=== PATIENT | male | born 2000 | race Hispanic/Latino ===

== ENCOUNTER 2022-05-29 17:23 | Emergency (ER) | payer OTHER, SELFPAY ==
--- OUTSIDE RECORDS SUMMARY | 2022-05-29 17:26 | XMS REPORT | Continuity of Care Document ---
:2000 Author Organization [facility] t Address [address] [place] [address] [address] [place] [address] Care Team Providers Name Role Phone Andre Espinoza Attending Clinician Unavailable Tenzin Jhaveri Attending Clinician Unavailable Problems Condition Condition Condition Status Onset Resolution Last Treating Co mments Source Name Details Category Date Date Treatment Clinician Date Tobacco Tobacco Problem Active Common use use Spirit disorder disorder - [facility] Allergies, Adverse Reactions, Alerts This patient has no known allergies or adverse reactions. Medications Ordered Filled Start Stop Current Ordering Indication Dosage Frequency Signature Comments Components Source Medication Medication Date Date Medication? Clinician (SIG) Name Name Doxycycline Doxycycline 2019- No [facility] 1 capsule Common Hyclate Hyclate 4-10 01-01 Espinoza Spirit 00:00: 00:00 - [facility] 00 :00 [facility] Procedures This patient has no known procedures. Encounters Start End Encounter Admission Attending Care Care Encounter Source Date/Time Date/Time Type Type Clinicians Facility Department ID 2022-03-14 Outpatient [facility] [id number] [place] 08:51:[id number] [facility] 2021-10-12 Outpatient THUY Espinoza NATHALIA [id number] Common 11:17:21 [facility] [id number] [facility] 2021-01-10 2021-01-10 Outpatient JAYA Sanchez STLSSAVANAH [id number] [facility] [address] 04:56:00 04:56:00 Tenzin [id number] Ashish maritnez 2019-04-18 2019-04-18 Outpatient Donna Granado [id number] Common 12:04:00 12:04:[address] Family [facility] 2019-04-14 2019-04-14 [facility] [id number] Common 11:00:00 11:00:00 [facility] [address] [facility] 2018-12-30 2018-12-30 Outpatient Donna Granado [id number] Common 08:36:00 08:36:[address] [facility] 2018-12-25 2018-12-25 Outpatient Donna Granado [id number] Common 11:00:00 11:00:[address] [facility] Results This patient has no known results.
[2022-05-29] MEDS ORDERED: NA CHLORIDE 0.9% 1,000 ML ONE (18:13)
[2022-05-29 18:18] LABS: Absolute Lymphocytes (CBC) 1.1 K/uL (0.7-4.9); Hematocrit 44.6 % (39.6-49.0); Lymphocytes % 15.8 % (15.3-44.8); MCV 89.3 fL (80-100); MPV 8.5 fL (7.6-11.3)
[2022-05-29 18:22] LABS: Protime INR 0.96
--- NOTE | 2022-05-29 18:24 | ER ---
Nurse's Notes [facility] Name: Leo Alanis Age: 22 yrs Sex: Male : 2000 Arrival Date: 05/29/2022 Time: 17:42 Bed 20 Private MD: Diagnosis: Major depressive disorder, single episode, mild;Other psychoactive substance abuse;Other psychoactive substance abuse with intoxication delirium;Suicidal ideations Presentation: 05/29 17:53 Chief complaint: EMS states: patient got into an argument with his girlfriend, told her mb8 he was going to take a bunch of pills. PD was called and called EMS to transport patient. Patient denies wanting to hurt himself or other right now. Coronavirus screen: Vaccine status: Patient reports being unvaccinated. Ebola Screen: No symptoms or risks identified at this time. Initial Sepsis Screen: Does the patient meet any 2 criteria? No. Patient's initial sepsis screen is negative. Does the patient have a suspected source of infection? No. Patient's initial sepsis screen is negative. Risk Assessment: Do you want to hurt yourself or someone else? Patient reports desire/thoughts of hurting themselves or someone else. Provider notified. Other: told girlfriend he want to take pills to kill himself. Onset of symptoms is unknown. 17:53 Method Of Arrival: EMS [facility] 17:53 Acuity: QIAN 2 mb8 18:20 Care prior to arrival: None. mb8 Triage Assessment: 17:56 General: Appears in no apparent distress. Behavior is quiet. Pain: Denies pain. mb8 18:08 General:. mb8 Historical: - Allergies: 17:55 No Known Allergies; mb8 - Social history:: Smoking status: Patient reports the use of cigarette tobacco products, denies chronic smoking, but will smoke occasionally. Screenin:57 Abuse screen: Denies threats or abuse. Denies injuries from another. Nutritional mb8 screening: No deficits noted. Tuberculosis screening: No symptoms or risk factors identified. Fall Risk None identified. Assessment: 17:56 Pain: Denies pain. Neuro: No deficits noted. Cardiovascular: No deficits noted. mb8 Respiratory: No deficits noted. GI: No deficits noted. : No deficits noted. Psych: 18:21 [place] Suicide Severity Screening: In the past month, have you wished you were mb8 or wished you could go to sleep and not wake up? Patient responds "No." "In the past month, have you actually had any thoughts of killing yourself?" Patient responds "no." "In your lifetime, have you ever done anything, started to do anything, or prepared to do anything to end your life?" Patient responds "no." Patient told girlfriend he wants to take a bunch of pills to kill himself, denies wanting to follow through at this time. Subjective: Patient's mood is sad, Delusions are denied, Hallucinations are denied Having thoughts of suicide. Plan for suicide is Patient told girlfriend he wants to take a bunch of pills to kill himself, denies wanting to follow through at this time. Objective: Patient is cooperative, guarded, using poor eye contact, Speech is soft, Affect is appropriate. Interventions: Removed personal items and placed in bag. Patient placed in hospital gown. Searched person for dangerous items. Safety Checks: Personal items have been removed. Door is open. Vital Signs: 17:46 BP 108 / 77; Pulse 63; Resp 16; Temp 98.4; Pulse Ox 100% on R/A; Weight 78.47 kg (R); mb7 Height 5 ft. 11 in. (180.34 cm) (R); 21:38 BP 127 / 76; Pulse 57; Resp 16; Pulse Ox 100% on R/A; ll3 17:46 Body Mass Index 24.13 (78.47 kg, 180.34 cm) mb7 ED Course: 17:42 Patient arrived in ED. mb8 17:46 Jasson Carlson MD is Attending Physician. [facility] 17:47 Patient has correct armband on for positive identification. mb7 17:53 Mandeep Friedman, NUNU is Primary Nurse. mb8 17:55 Triage completed. mb8 17:56 Arm band placed on. mb8 17:57 Allergy band placed. Bed in low position. Patient is placed in psych hold. mb8 17:57 No provider procedures requiring assistance completed. mb8 17:58 Safety Checks: Personal items have been removed. The door is open or patient has been mb8 placed in a hallway bed/chair. There are no family/friend visitors at this time Sitter present at this time. 17:59 Inserted saline lock: 20 gauge in right forearm, using aseptic technique. Blood mb7 collected. 17:59 Acetaminophen Sent. mb7 17:59 Basic Metabolic Panel Sent. mb7 17:59 CBC with Diff Sent. mb7 17:59 ETOH Level Sent. mb7 17:59 Hepatic Function Sent. mb7 17:59 PT-INR Sent. mb7 17:59 Ptt, Activated Sent. mb7 17:59 Salicylate Sent. mb7 18:17 EKG done, by ED staff, reviewed by Jasson Carlson MD. mb7 18:31 notified [facility] of need to have pt evaluated. bd 19:00 Resting quietly. ll3 19:12 Primary Nurse role handed off by Mandeep Friedman RN 2 19:43 Attending Physician role handed off by Jasson Carlson MD kdr 19:43 Bar Valdez MD is Attending Physician. kdr 20:35 patient talking to Frankie from [facility] Crisis line on the phone. mw2 21:00 Appears to be sleeping. ll3 21:35 IV discontinued, intact, bleeding controlled, No redness/swelling at site. Pressure ll3 dressing applied. Administered Medications: 18:07 Drug: NS 0.9% 1000 ml Route: IV; Rate: 1 bolus; Site: right forearm; mb8 21:38 Follow up: Response: No adverse reaction; IV Status: Completed infusion; IV Intake: ll3 1000ml Medication: 17:57 VIS not applicable for this client. mb8 Intake: 21:38 IV: 1000ml; Total: 1000ml. ll3 Outcome: 18:24 ER care complete, transfer ordered by . [facility] 21:08 Discharge ordered by . kdr 21:35 Discharged to home ambulatory, with significant other. ll3 21:35 Condition: stable 21:35 Discharge instructions given to patient, significant other, Instructed on discharge instructions, follow up and referral plans. Demonstrated understanding of instructions, follow-up care. 21:41 Patient left the ED. ll3 Signatures: Tala Art Corey, MD MD cha Rittger, Kevin, MD MD [facility] Leela Herrera mw2 Valery Macario RN RN ll3 Homero Alejandra mb7 Mandeep Friedman, RN RN mb8
--- NOTE | 2022-05-29 18:24 | EDPHYS ---
Physician Documentation [facility] Name: Leo Alanis Age: 22 yrs Sex: Male : 2000 Arrival Date: 05/29/2022 Time: 17:42 Bed 20 Private MD: ED Physician Bar Valdez HPI: 05/29 18:13 This 22 yrs old Male presents to ER via EMS with complaints of Suicidal shyla Ideation. 18:13 The patient presents to the emergency department with depression, over a , the shyla patient's mother. Onset: The symptoms/episode began/occurred this morning, today. Past psychiatric history: Prior diagnosis: depression, Psychiatric medications include: none. Associated signs and symptoms: Pertinent positives; substance abuse, suicide ideation. Severity of symptoms: At their worst the symptoms were mild in the emergency department the symptoms have resolved. The patient has not experienced similar symptoms in the past. Historical: - Allergies: 17:55 No Known Allergies; mb8 - Social history:: Smoking status: Patient reports the use of cigarette tobacco products, denies chronic smoking, but will smoke occasionally. ROS: 18:16 Constitutional: Negative for fever, chills, and weight loss, Eyes: Negative for injury, shyla pain, redness, and discharge, ENT: Negative for injury, pain, and discharge, Neck: Negative for injury, pain, and swelling, Cardiovascular: Negative for chest pain, palpitations, and edema, Respiratory: Negative for shortness of breath, cough, wheezing, and pleuritic chest pain, Abdomen/GI: Negative for abdominal pain, nausea, vomiting, diarrhea, and constipation, Back: Negative for injury and pain, : Negative for injury, bleeding, discharge, and swelling, MS/Extremity: Negative for injury and deformity, Skin: Negative for injury, rash, and discoloration, Neuro: Negative for headache, weakness, numbness, tingling, and seizure, Allergy/Immunology: Negative for hives, rash, and allergies, Endocrine: Negative for neck swelling, polydipsia, polyuria, polyphagia, and marked weight changes, Hematologic/Lymphatic: Negative for swollen nodes, abnormal bleeding, and unusual bruising. 18:16 Neuro: 18:16 Psych: Positive for depression, suicidal ideation. Exam: 18:16 Constitutional: This is a well developed, well nourished patient who is awake, alert, shyla and in no acute distress. Head/Face: Normocephalic, atraumatic. Eyes: Pupils equal round and reactive to light, extra-ocular motions intact. Lids and lashes normal. Conjunctiva and sclera are non-icteric and not injected. Cornea within normal limits. Periorbital areas with no swelling, redness, or edema. ENT: Nares patent. No nasal discharge, no septal abnormalities noted. Tympanic membranes are normal and external auditory canals are clear. Oropharynx with no redness, swelling, or masses, exudates, or evidence of obstruction, uvula midline. Mucous membranes moist. Neck: Trachea midline, no thyromegaly or masses palpated, and no cervical lymphadenopathy. Supple, full range of motion without nuchal rigidity, or vertebral point tenderness. No Meningismus. Chest/axilla: Normal chest wall appearance and motion. Nontender with no deformity. No lesions are appreciated. Cardiovascular: Regular rate and rhythm with a normal S1 and S2. No gallops, murmurs, or rubs. Normal PMI, no JVD. No pulse deficits. Respiratory: Lungs have equal breath sounds bilaterally, clear to auscultation and percussion. No rales, rhonchi or wheezes noted. No increased work of breathing, no retractions or nasal flaring. Abdomen/GI: Soft, non-tender, with normal bowel sounds. No distension or tympany. No guarding or rebound. No evidence of tenderness throughout. Back: No spinal tenderness. No costovertebral tenderness. Full range of motion. Male : Normal genitalia with no discharge or lesions. Skin: Warm, dry with normal turgor. Normal color with no rashes, no lesions, and no evidence of cellulitis. MS/ Extremity: Pulses equal, no cyanosis. Neurovascular intact. Full, normal range of motion. Neuro: Awake and alert, GCS 15, oriented to person, place, time, and situation. Cranial nerves II-XII grossly intact. Motor strength 5/5 in all extremities. Sensory grossly intact. Cerebellar exam normal. Normal gait. 18:16 Psych: Behavior/mood is cooperative, Affect is calm, Oriented to Patient has no thoughts/intents to harm self or others. Judgement / Insight is normal. Memory is normal. Delusions/hallucinations are not present. 18:31 ECG was reviewed by the Attending Physician. [facility] Vital Signs: 17:46 BP 108 / 77; Pulse 63; Resp 16; Temp 98.4; Pulse Ox 100% on R/A; Weight 78.47 kg (R); mb7 Height 5 ft. 11 in. (180.34 cm) (R); 21:38 BP 127 / 76; Pulse 57; Resp 16; Pulse Ox 100% on R/A; ll3 17:46 Body Mass Index 24.13 (78.47 kg, 180.34 cm) 7 MDM: 17:46 Patient medically screened. shyla 18:30 Differential diagnosis: acute psychotic break, depression. Data reviewed: vital signs, [facility] nurses notes, lab test result(s), EKG. Data interpreted: playground monitor: not applicable for this patient encounter. rate is 63 beats/min, rhythm is regular, Pulse oximetry: on room air is 63 %. Test interpretation: by ED physician or midlevel provider: ECG. Counseling: I had a detailed discussion with the patient and/or guardian regarding: the historical points, exam findings, and any diagnostic results supporting the discharge/admit diagnosis, lab results. 05/29 17:46 Order name: Acetaminophen; Complete Time: 21:00 [facility] 05/29 17:46 Order name: Basic Metabolic Panel; Complete Time: 21:00 [facility] 05/29 17:46 Order name: CBC with Diff; Complete Time: 21:00 [facility] 05/29 17:46 Order name: ETOH Level; Complete Time: 21:00 [facility] 05/29 17:46 Order name: Hepatic Function; Complete Time: 21:00 [facility] 05/29 17:46 Order name: PT-INR; Complete Time: 18:28 [facility] 05/29 17:46 Order name: Ptt, Activated; Complete Time: 18:28 [facility] 05/29 17:46 Order name: Salicylate; Complete Time: 21:00 [facility] 05/29 17:46 Order name: Urine Drug Screen; Complete Time: 21:00 [facility] 05/29 17:46 Order name: EKG; Complete Time: 17:47 [facility] 05/29 17:46 Order name: EKG - Nurse/Tech; Complete Time: 18:17 [facility] 05/29 18:28 Order name: SARS RAPID; Complete Time: 21:00 [facility] 05/29 19:21 Order name: Urine Dipstick-Ancillary; Complete Time: 21:00 [facility]AL 05/29 17:46 Order name: IV Saline Lock; Complete Time: 17:59 [facility] 05/29 17:46 Order name: Labs collected and sent; Complete Time: 17:59 [facility] 05/29 17:46 Order name: Suicide Precautions; Complete Time: 17:59 [facility] 05/29 17:46 Order name: Suicide Screening ([place]); Complete Time: 18:07 [facility] 05/29 17:46 Order name: Urine Dipstick-Ancillary (obtain specimen); Complete Time: 19:20 [facility] EC:31 Rate is 59 beats/min. Rhythm is regular. QRS [place] is Normal. [place] interval is normal. QRS shyla interval is normal. QT interval is normal. No Q waves. T waves are Normal. No ST changes noted. Clinical impression: Sinus bradycardia and No evidence of ischemia. Interpreted by me. Reviewed by me. Administered Medications: 18:07 Drug: NS 0.9% 1000 ml Route: IV; Rate: 1 bolus; Site: right forearm; 8 21:38 Follow up: Response: No adverse reaction; IV Status: Completed infusion; IV Intake: ll3 1000ml Disposition Summary: 05/29/22 21:08 Discharge Ordered Location: Home kdr Problem: new(05/29/22 21:08) kdr Symptoms: have improved(05/29/22 21:08) kdr Condition: Stable(05/29/22 21:08) kdr Diagnosis - Major depressive disorder, single episode, mild kdr - Other psychoactive substance abuse(05/29/22 21:08) kdr - Other psychoactive substance abuse with intoxication delirium kdr - Suicidal ideations(05/29/22 21:08) kdr Followup: kdr - With: Private Physician - When: 2 - 3 days - Reason: If symptoms return, Further diagnostic work-up, Recheck today's complaints, Continuance of care, Re-evaluation by your physician Discharge Instructions: - Discharge Summary Sheet kdr - Substance Use Disorder kdr - Suicidal Feelings: How to Help Yourself kdr - Major Depressive Disorder, Adult, [id number] kdr Forms: - Medication Reconciliation Form kdr - Thank You Letter kdr Signatures: Dispatcher [employer] Jasson Jamison MD MD cha Rittger, Kevin, MD MD kdr Bates, Michael, RN RN mb8 Valery Macario RN ll3 Corrections: (The following items were deleted from the chart) 21: 18:24 TP PSYCH shyla kdr 21:05 18:24 Psych Facility shyla kdr 21:05 18:24 Higher level of care shyla kdr 21:05 18:24 Stable shyla kdr 21:05 18:24 new shyla kdr 21:05 18:24 have improved shyla kdr 21:05 18:24 Major depressive disorder, single episode, moderate shyla kdr 21:05 18:24 Other psychoactive substance abuse shyla kdr 21:05 18:24 Suicidal ideations shyla kdr
[2022-05-29 18:35] LABS: ALT/SGPT 24 U/L (12-78); AST/SGOT 14 U/L (15-37); Albumin 4.4 g/dL (3.4-5.0); Alkaline Phosphatase 66 U/L (45-117); BUN Blood Urea Nitrogen 11 mg/dL (7-18); Bicarbonate 22 mmol/L (21-32); Bilirubin Direct 0.1 mg/dL (0-0.2); Bilirubin Total 0.4 mg/dL (0.2-1.0); Glomerular Filtration Rate 101 ml/min (=/>90); Glucose Level 96 mg/dL (74-106); Potassium 3.9 mmol/L (3.5-5.1); Protein, Total 7.3 g/dL (6.4-8.2); Sodium Level 138 mmol/L (136-145)
[2022-05-29 19:02] LABS: SARS-CoV-2 Antigen Rapid Res Negative (Negative)
[2022-05-29 19:20] LABS: Urine Blood Negative (Negative); Urine Glucose Negative (Negative); Urine Protein Negative (Negative); Urine Specific Gravity >=1.030 (1.005-1.030)
[2022-05-29 19:47] LABS: Barbiturates NEGATIVE (NEGATIVE); Benzodiazepines NEGATIVE (NEGATIVE); Cocaine NEGATIVE (NEGATIVE); METHAMPHETAM NEGATIVE (NEGATIVE); Methadone NEGATIVE (NEGATIVE); Opiates NEGATIVE (NEGATIVE); Phencyclidine NEGATIVE (NEGATIVE); THC Cannibis POSITIVE (NEGATIVE)
[2022-05-30 00:56] VITALS: TEMP 98.4; O2SAT 100
[2022-05-30 00:59] VITALS: BP 127/76
--- NOTE | 2022-05-30 15:39 | EKG ---
Test Date: 2022-05-29 Test Time: 18:11:39 Assistant Unit Forester: MB MEASUREMENT RESULTS: Intervals: Rate: 59 TX: 130 QRSD: 98 QT: 426 QTc: 421 [place]: P: 50 TX: 130 QRS: 83 T: 66 INTERPRETIVE STATEMENTS: Sinus bradycardia with sinus arrhythmia Otherwise normal ECG No previous ECG available for comparison Electronically Signed On 05-30-22 15:38:29 CDT by Jose So
== END 2022-05-29 21:41 | disposition home or self-care (01) ==
LOC: ER 17:23
DX: R45.851 Suicidal ideations (principal); F32.0 Major depressive disorder, single episode, mild; F19.121 Other psychoactive substance abuse with intoxication delirium; F17.210 Nicotine dependence, cigarettes, uncomplicated
CPT/HCPCS: 36415; 80048; 80076; 80307; 80320; 80329; 81003; 85025; 85610; 85730; 87811; 93005; 96360; 96361; 99285; J7030